=== PATIENT | female | born 1935 | race Caucasian/White ===

== ENCOUNTER 2018-10-21 13:53 | Outpatient (CLI) | payer MEDICARE, BC ==
[2018-10-21] MEDS ORDERED: methylPREDNISolone Acetate 80 MG/ML SDV ONE (14:40)
[2018-10-21] MEDS ORDERED: Bupivacaine 0.25% 10 ML SDV ONE (14:40)
--- NOTE | 2018-10-21 16:37 | ANES ---
DATE OF SERVICE: 10/21/2018 INDICATIONS: Ms. Fraga is an 83-year-old female patient, referred to the [facility] to us by Sarah Segura PA-C. She is here today for an epidural steroid injection #2. She states that she got not too bad relief for few days after the first one and then kind of came back. We discussed at length about doing at least 2 and she agreed. The risks and benefits of the procedure were explained to the patient. She wished to proceed with another epidural steroid injection. TECHNIQUE: She was placed in a sitting position. Her back was prepped x3 with Betadine. 1% lidocaine skin local was used. The epidural was placed at L5-S1 using a 17-gauge Tuohy needle in loss of resistance technique. The epidural had very good feel throughout, and the epidural space was easily identified. There was negative CSF, negative blood, and negative paresthesias noted. Therefore, 80 mg of Depo-Medrol and 2 mL of 0.25% Sensorcaine with 7 mL preservative-free normal saline were injected with ease. The patient tolerated the epidural procedure very nicely. Her vital signs remained stable throughout the procedure and nurse was with me for the entire procedure. There were no anesthesia complications noted, and she is going to return in 2 weeks if needed for another epidural steroid injection. She was discharged from the [facility] per protocol the per protocol. Michael Ruiz CRNA /[id number]
== END 2018-10-21 15:07 | disposition home or self-care (01) ==
LOC: JP.PAIN 13:53
PROVIDERS: ATTEND Physician Assistant
DX: M48.061 Spinal stenosis, lumbar region without neurogenic claudication (principal)
CPT/HCPCS: 62322; J1040; J3490

== ENCOUNTER 2018-12-03 03:53 | Emergency (ER) | payer MEDICARE, BC ==
--- NOTE | 2018-12-03 04:49 | EDM.PDOC ---
ED HPI GENERAL MEDICAL PROBLEM - General Chief Complaint: Chest Pain Stated Complaint: CHEST/SHOULDER PAIN Time Seen by Provider: 12/03/18 04:43 Source of Information: Reports: Patient History Limitations: Reports: No Limitations - History of Present Illness INITIAL COMMENTS - FREE TEXT/NARRATIVE: pt arried with pain in the left shoulder and left post cervical area. Pt did not have chest pain. She had a similar episode last nite. After getting up she took a hydrocodone which gave almost complete relief. Onset: Today, Sudden, Other (pt woke up with the pain , she was not sweaty. 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: Musculoskeletal History: Reports: Fracture, Osteoarthritis, RA Hematologic History: Reports: Blood Transfusion(s) Immunologic History: Reports: Immunosuppression, Other (See Below) Other Immunologic History: RA Dermatologic History: Reports: Eczema - Past Surgical History HEENT Surgical History: Reports: Cataract Surgery, Tonsillectomy GI Surgical History: Reports: Colonoscopy Female Surgical History: Reports: Hysterectomy Musculoskeletal Surgical History: Reports: Carpal Tunnel, Knee Replacement Social & Family History - Tobacco Use Smoking Status *Q: Never Smoker - Caffeine Use Caffeine Use: Reports: Coffee - Recreational Drug Use Recreational Drug Use: No ED ROS GENERAL - Review of Systems Review Of Systems: See Below Constitutional: Reports: No Symptoms HEENT: Reports: No Symptoms Respiratory: Reports: No Symptoms Cardiovascular: Reports: Other (pt had left shoulder and left post cervical pain ) Endocrine: Reports: No Symptoms GI/Abdominal: Reports: No Symptoms : Reports: No Symptoms Musculoskeletal: Reports: No Symptoms Skin: Reports: No Symptoms Neurological: Reports: No Symptoms ED EXAM, GENERAL - Physical Exam Exam: See Below Free Text/Narrative:: pt arrived with a history of pain in the left shoulder and left post cervical area. She woke up with the pain. This also happened the nite before last. She was not sweaty and she did not have chest pain. Exam Limited By: No Limitations General Appearance: Alert, No Apparent Distress, Other ( Pt did take a hydrocodone prior to coming and that did give her nearly complete relief. ) Ears: Normal TMs Nose: Normal Inspection Throat/Mouth: Normal Inspection Head: Atraumatic Neck: Other (pt does have muscle spasm and tenderness in the left post cervical area. ) Respiratory/Chest: No Respiratory Distress, Other ( chest xray was clear. ) Cardiovascular: Regular Rate, Rhythm GI/Abdominal: Soft, Non-Tender (Female) Exam: Deferred Rectal (Female) Exam: Deferred Back Exam: Normal Inspection Extremities: Other (pt has mild tenderness in the shoulder. She is very tender in the post cervical area. ) Neurological: Alert, Oriented, Normal Cognition Psychiatric: Anxious Course - Vital Signs Last Recorded V/S: Last Vital Signs Temp 36.7 C 12/03/18 04:11 Pulse 70 12/03/18 04:11 Resp 14 12/03/18 04:11 BP 151/63 H 12/03/18 04:11 Pulse Ox 99 12/03/18 04:11 - Orders/Labs/Meds Orders: Active Orders 24 hr Category Date Time Status EKG Documentation Completion [RC] ASDIRECTED Care 12/03/18 04:09 Active Vaccines to be Administered [RC] PER UNIT ROUTINE Care 12/03/18 05:15 Active UA W/MICROSCOPIC [URIN] Urgent Lab 12/03/18 04:09 Ordered EKG 12 Lead [EK] Routine Ther 12/03/18 04:09 Ordered Labs: Laboratory Tests 12/03/18 12/03/18 12/03/18 Range/Units 04:09 04:09 04:15 WBC 5.2 (4.5-11.0) K/uL RBC 4.16 (3.30-5.50) M/uL Hgb 12.9 (12.0-15.0) g/dL Hct 38.9 (36.0-48.0) % MCV 94 (80-98) fL MCH 31 (27-31) pg MCHC 33 (32-36) % Plt Count 263 (150-400) K/uL Neut % (Auto) 58 (36-66) % Lymph % (Auto) 21 L (24-44) % [place] % (Auto) 18 H (2-6) % Eos % (Auto) 2 (2-4) % Baso % (Auto) 1 (0-1) % Sodium 140 (140-148) mmol/L Potassium 3.7 (3.6-5.2) mmol/L Chloride 105 (100-108) mmol/L Carbon Dioxide 26 (21-32) mmol/L Anion Gap 8.7 (5.0-14.0) mmol/L BUN 12 (7-18) mg/dL Creatinine 0.9 (0.6-1.0) mg/dL Est Cr Clr Drug Dosing 42.62 mL/min Estimated GFR (MDRD) 60 (>60) Glucose 90 (74-106) mg/dL Calcium 9.3 (8.5-10.1) mg/dL Total Bilirubin 0.4 (0.2-1.0) mg/dL AST 26 (15-37) U/L ALT 35 (12-78) U/L Alkaline Phosphatase 82 (46-116) U/L Troponin I < 0.017 (0.000-0.056) ng/mL Total Protein 6.8 (6.4-8.2) g/dL Albumin 3.3 L (3.4-5.0) g/dL Globulin 3.5 (2.3-3.5) g/dL Albumin/Globulin Ratio 0.9 L (1.2-2.2) Meds: Medications Discontinued Medications Generic Name Dose Route Start Last Admin Trade Name Freq PRN Reason Stop Dose Admin Diphtheria/Tetanus/Acell Pertussis 0.5 ml 12/03/18 05:15 Adacel IM 12/03/18 05:16 .ONCE ONE - Re-Assessments/Exams Free Text/Narrative Re-Assessment/Exam: 12/03/18 05:33 pt has a rt bundle branch block and there is no recent ekg to compare. She had a trop which was normal. Her labs otherwise look good. Departure - Departure Time of Disposition: 05:39 Disposition: Home, Self-Care 01 Condition: Fair Clinical Impression: Left shoulder pain, Cervical paraspinal muscle spasm Referrals: PCP,None [Primary Care Provider] - Forms: ED Department Discharge Care Plan Goals: most warm heat to post cervical area, If persistent pain consider a cervical xray, rtc for a lexiscan. - My Orders Last 24 Hours: My Active Orders 12/03/18 04:09 EKG Documentation Completion [RC] ASDIRECTED UA W/MICROSCOPIC [URIN] Urgent EKG 12 Lead [EK] Routine 12/03/18 05:15 Vaccines to be Administered [RC] PER UNIT ROUTINE - Assessment/Plan Last 24 Hours: My Active Orders 12/03/18 04:09 EKG Documentation Completion [RC] ASDIRECTED UA W/MICROSCOPIC [URIN] Urgent EKG 12 Lead [EK] Routine 12/03/18 05:15 Vaccines to be Administered [RC] PER UNIT ROUTINE
--- NOTE | 2018-12-03 05:12 | CRLCR ---
INDICATION: Chest pain in left shoulder TECHNIQUE: Chest radiograph 1 view COMPARISON: 06/08/2010 FINDINGS: Mediastinum: The mediastinum is normal in appearance. Mild cardiomegaly is noted without interval change. Lung: Both lungs are unremarkable in appearance. The apices are obscured by metallic necklace. No sign of pleural effusion seen. No pneumothorax is identified. Musculoskeletal: Unremarkable for age. IMPRESSIONS: 1. No acute cardiopulmonary disease is seen. 2. The apices are obscured by metallic necklace. Dictated by Christopher Spain MD @ 12/03/2018 5:10:37 AM Dictated by: Christopher Spain MD @ 12/03/2018 05:10:39 (Electronically Signed)
[2018-12-03] MEDS ORDERED: Diphtheria,Pertussis(Acell),Tetanus Vaccine 0.5 ML SDV IM ONE (05:15)
== END 2018-12-03 06:00 | disposition home or self-care (01) ==
LOC: JP.ED 03:53
DX: M62.830 Muscle spasm of back (principal); M25.512 Pain in left shoulder; Z88.1 Allergy status to other antibiotic agents; Z79.899 Other long term (current) drug therapy
CPT/HCPCS: 36415; 71045; 80053; 84484; 85025; 90471; 93005; 99284-25

== ENCOUNTER 2022-04-28 13:18 | Emergency (ER) | payer MEDICARE, BC ==
[2022-04-28] MEDS ORDERED: Propofol 200 MG/20 ML SDV ONE (13:25)
[2022-04-28] MEDS ORDERED: HYDROmorphone 0.5 MG/0.5 ML Syringe ONE (13:25)
== END 2022-04-28 15:00 | disposition home or self-care (01) ==
LOC: JP.ED 13:18
DX: S52.532A Colles' fracture of left radius, initial encounter for closed fracture (principal)
CPT/HCPCS: 25605; 73110; 76000; 96374; 99283; J1170; J2704

== ENCOUNTER 2022-04-29 12:37 | Emergency (ER) | payer MEDICARE, BC | END 2022-04-29 15:00 | disposition home or self-care (01) | LOC: JP.ED 12:37 | DX: S52.502A Unspecified fracture of the lower end of left radius, initial encounter for closed fracture (principal) | CPT/HCPCS: 99283 ==

== ENCOUNTER 2023-01-27 18:49 | Inpatient (IN) | payer MEDICARE, BC ==
[2023-01-27] MEDS ORDERED: Sodium Chloride 0.9% 10 ML Syringe FLUSH PRN (18:56)
[2023-01-27] MEDS ORDERED: HYDROmorphone 0.5 MG/0.5 ML Syringe IVPUSH ONE ×3 (18:56→22:56)
[2023-01-27 20:46] LABS: BASOPHILS ABSOLUTE AUTO 0.05 K/uL (0.00-0.10); BASOPHILS PERCENT AUTO 0.9 % (0.1-1.3); EOSINOPHILS ABSOLUTE AUTO 0.04 K/uL (0.00-0.40); EOSINOPHILS PERCENT AUTO 0.7 % (0.0-5.4); HEMATOCRIT 37.7 % (34.3-46.0); HEMOGLOBIN 12.8 g/dL (11.2-15.5); IMMATURE GRAN PERCENT AUTO 0.4 % (0.0-0.7); LYMPHOCYTES ABSOLUTE AUTO 0.87 K/uL (0.8-3.3); LYMPHOCYTES PERCENT AUTO 15.3 % (11.4-47.7); MEAN CORPUSCULAR HEMOGLOBIN 30.3 pg (31.6-35.5); MEAN CORPUSCULAR VOLUME 89.1 fL (81.4-99.0); MONOCYTES ABSOLUTE AUTO 0.47 K/uL (0.20-0.90); MONOCYTES PERCENT AUTO 8.3 % (3.3-12.6); NEUTROPHILS ABSOLUTE AUTO 4.24 K/uL (1.0-7.6); NEUTROPHILS PERCENT AUTO 74.4 % (40.0-78.1); PLATELET COUNT,PLT 199 K/uL (130-375); RED BLOOD CELL COUNT 4.23 M/uL (3.77-5.24); WHITE BLOOD CELL COUNT,WBC 5.7 K/uL (3.2-11.0)
[2023-01-27 21:03] LABS: IMMATURE GRAN ABSOLUTE AUTO 0.02 K/uL (0.00-0.23)
[2023-01-27 21:04] LABS: BLOOD UREA NITROGEN,BUN 19 mg/dL (7-18); CALCIUM 9.5 mg/dL (8.5-10.1); CARBON DIOXIDE,CO2 23 mmol/L (21-32); CHLORIDE,CL 105 mmol/L (100-108); CREATININE 0.8 mg/dL (0.6-1.0); ESTIMATED GFR 71 mL/min (>60); GLUCOSE RANDOM 96 mg/dL (74-106); SODIUM,NA 138 mmol/L (140-148)
[2023-01-27] MEDS ORDERED: Ondansetron 4 MG Tab.DIS PO PRN (21:09)
[2023-01-27] MEDS ORDERED: Promethazine 6.25 MG in Sodium Chloride 0.9% 50 ML IV PRN (21:09)
[2023-01-27] MEDS ORDERED: Naloxone 0.4 MG/ML SDV IVPUSH PRN (21:11)
[2023-01-28] MEDS: Morphine 2 MG/ML SYRINGE IVPUSH PRN (00:58)
[2023-01-28] MEDS: HYDROmorphone 0.5 MG/0.5 ML Syringe IVPUSH PRN ×4 (03:04→15:44)
[2023-01-28] MEDS ORDERED: Lactated Ringers 750 ML IV ONE (15:30)
[2023-01-28] MEDS ORDERED: Bupivacaine 0.5% 50 ML MDV ONE (15:33)
[2023-01-28] MEDS ORDERED: ceFAZolin 2 GM in Premix Bag 1 BAG IV ONE (16:00)
[2023-01-28] MEDS ORDERED: Midazolam 1 MG/ML 2 ML SDV ONE (16:02)
[2023-01-28] MEDS ORDERED: fentaNYL 100 MCG/2 ML SDV ONE ×2 (16:02→17:59)
[2023-01-28] MEDS ORDERED: Propofol 200 MG/20 ML SDV ONE ×2 (16:02→17:12)
[2023-01-28] MEDS ORDERED: Lactated Ringers 1,000 ML ONE (17:11)
[2023-01-28] MEDS ORDERED: Magnesium Hydroxide 400 MG/5 ML Susp 30 ML Cup PO PRN (18:47)
[2023-01-28] MEDS: Sodium Chloride 0.9% 1,000 ML IV SCH (19:15)
[2023-01-28] MEDS: Acetaminophen 325 MG Tab PO SCH (19:58)
[2023-01-28] MEDS: oxyCODONE 5 MG Tab PO PRN (19:58)
[2023-01-28] MEDS: Aspirin 325 MG Tab.EC PO SCH (20:00)
[2023-01-28] MEDS: Docusate Sodium 100 MG Cap PO SCH (20:00)
[2023-01-28] MEDS ORDERED: Sodium Chloride 0.9% 500 ML IV SCH (23:15)
[2023-01-29] MEDS: Acetaminophen 325 MG Tab PO SCH ×5 (00:17→23:49)
[2023-01-29] MEDS: oxyCODONE 5 MG Tab PO PRN ×6 (00:18→23:52)
[2023-01-29] MEDS ORDERED: ceFAZolin 1 GM in Sodium Chloride 0.9% 50 ML IV SCH (01:00)
[2023-01-29] MEDS ORDERED: ceFAZolin 1 GM in Premix Bag 1 BAG IV SCH (01:00)
[2023-01-29] MEDS: Sodium Chloride 0.9% 1,000 ML IV SCH ×3 (04:19→21:42)
[2023-01-29] MEDS: traMADol 50 MG Tab PO PRN ×3 (08:12→17:03)
[2023-01-29] MEDS: ceFAZolin 1 GM in Premix Bag 1 BAG IV SCH ×2 (09:32→16:29)
[2023-01-29] MEDS: Docusate Sodium 100 MG Cap PO SCH ×2 (09:33→20:06)
[2023-01-29] MEDS: Aspirin 325 MG Tab.EC PO SCH ×2 (09:34→20:06)
[2023-01-29] MEDS: Morphine 2 MG/ML SYRINGE IVPUSH PRN (10:33)
[2023-01-30] MEDS: Acetaminophen 325 MG Tab PO SCH ×4 (05:50→23:26)
[2023-01-30] MEDS: Sodium Chloride 0.9% 1,000 ML IV SCH (05:50)
[2023-01-30] MEDS: oxyCODONE 5 MG Tab PO PRN ×4 (07:54→21:00)
[2023-01-30] MEDS: Docusate Sodium 100 MG Cap PO SCH ×2 (08:15→20:57)
[2023-01-30] MEDS: Aspirin 325 MG Tab.EC PO SCH ×2 (08:15→20:57)
[2023-01-30] MEDS: traMADol 50 MG Tab PO PRN (14:48)
[2023-01-31] MEDS: oxyCODONE 5 MG Tab PO PRN ×5 (01:17→23:38)
[2023-01-31] MEDS: Acetaminophen 325 MG Tab PO SCH ×5 (05:51→23:38)
[2023-01-31] MEDS: Docusate Sodium 100 MG Cap PO SCH ×2 (09:32→20:16)
[2023-01-31] MEDS: Aspirin 325 MG Tab.EC PO SCH ×2 (09:32→20:16)
[2023-02-01] MEDS: oxyCODONE 5 MG Tab PO PRN ×3 (04:04→14:44)
[2023-02-01] MEDS: Acetaminophen 325 MG Tab PO SCH ×3 (05:22→17:07)
[2023-02-01] MEDS: Aspirin 325 MG Tab.EC PO SCH ×2 (08:01→20:22)
[2023-02-01] MEDS: Docusate Sodium 100 MG Cap PO SCH ×2 (08:01→20:22)
[2023-02-01] MEDS ORDERED: Benzocaine/Cetylpyridinium/Menthol Lozenge MUCMEM PRN (16:41)
[2023-02-02] MEDS: Acetaminophen 325 MG Tab PO SCH ×4 (00:27→11:06)
[2023-02-02] MEDS: oxyCODONE 5 MG Tab PO PRN ×3 (01:07→12:04)
[2023-02-02] MEDS: Aspirin 325 MG Tab.EC PO SCH (09:46)
[2023-02-02] MEDS: Docusate Sodium 100 MG Cap PO SCH (09:47)
== END 2023-02-02 13:00 | disposition home health service (06) | DRG 481 ==
LOC: JP.ED 18:49 → JP.MS 20:51
PROVIDERS: ADMIT Family Medicine; ATTEND Specialist
PROC: 0QSB04Z Reposition Right Lower Femur with Internal Fixation Device, Open Approach (ICD-10-PCS; principal; 2023-01-28)
PROC: 0QUB0KZ Supplement Right Lower Femur with Nonautologous Tissue Substitute, Open Approach (ICD-10-PCS; 2023-01-28)
DX: S72.471A Torus fracture of lower end of right femur, initial encounter for closed fracture (principal); M97.11XA Periprosthetic fracture around internal prosthetic right knee joint, initial encounter; M06.9 Rheumatoid arthritis, unspecified; M81.0 Age-related osteoporosis without current pathological fracture; W18.39XA Other fall on same level, initial encounter; I45.10 Unspecified right bundle-branch block; D84.9 Immunodeficiency, unspecified; Z88.1 Allergy status to other antibiotic agents; Z90.89 Acquired absence of other organs; Z90.710 Acquired absence of both cervix and uterus; Z98.890 Other specified postprocedural states; Z98.49 Cataract extraction status, unspecified eye; Z96.653 Presence of artificial knee joint, bilateral; W18.30XA Fall on same level, unspecified, initial encounter
CPT/HCPCS: 36415; 73552 ×2; 80048; 85025; 93010; 96374; 99285 ×2; J1170 ×2; J3490; 51701; 51702; 86850; 86900; 86901; 93005; 97110-GP; 97116-GP; 97161-GP; 97530-GP; A9270-GY; C1713; J0690; J2250; J2270; J2704; J3010; J7030; J7120; U0002